=== PATIENT | male | born 1995 | race American Indian/Alaskan Native ===

== ENCOUNTER 2016-07-24 01:54 | Emergency (ER) | payer SELFPAY ==
[2016-07-24] MEDS ORDERED: TYLENOL ONE (02:58)
[2016-07-24] MEDS ORDERED: TYLENOL PO ONE (03:01)
--- NOTE | 2016-07-24 05:16 | XRay Report ---
FINAL REPORT PROCEDURE: XR KNEE 3V LT TECHNIQUE: LEFT knee radiographs, 4 or more views, including AP, lateral, and oblique views. CPT 78191 HISTORY: PAIN COMPARISON: No prior studies are available for comparison. FINDINGS: Fracture (s) and/or Dislocation(s): None . Alignment: Normal . Joint space(s): Normal . Soft tissues: Normal . Bone mineralization: Normal . Foreign bodies: None . IMPRESSION: Normal Examination.
--- NOTE | 2016-07-24 05:35 | Emergency Department Report ---
HPI - General Chief Complaint: Extremity Injury, Lower Time Seen by Provider: 07/24/16 04:24 - HPI HPI: Patient is a 20-year-old male presents to ED complaining of knee pain times today. Patient states he was playing basketball when he fill his knee pop. Patient states pain is localized to the left lateral knee. Patient denies radiation. Patient describes pain as a throbbing aching-type pain rated 9 out of 10 in intensity. Patient denies fevers/chills/nausea/vomiting/calf tenderness/dizziness/headache/ loss of consciousness/loss of sensation in the knee or lower foot. ED Past Medical Hx - Past Medical History Previous Medical History?: No - Surgical History Past Surgical History?: No - Social History Smoking Status: Current Every Day Smoker Substance Use Type: Alcohol - Medications Home Medications: Home Medications Medication Instructions Recorded Confirmed Last Taken Type Ibuprofen [Motrin] 600 mg PO Q8H PRN #20 tablet 07/24/16 Unknown Rx methOCARBAMOL [Robaxin TAB] 500 mg PO BID #20 tab 07/24/16 Unknown Rx ED Review of Systems ROS: Stated complaint: LEFT KNEE INJURY Other details as noted in HPI Constitutional: denies: chills, fever Eyes: denies: eye pain, eye discharge, vision change ENT: denies: ear pain, throat pain Respiratory: denies: cough, shortness of breath, wheezing Cardiovascular: denies: chest pain, palpitations Endocrine: no symptoms reported Gastrointestinal: denies: abdominal pain, nausea, vomiting, diarrhea Genitourinary: denies: urgency, dysuria Musculoskeletal: arthralgia. denies: back pain, joint swelling, myalgia Skin: denies: rash, lesions Neurological: denies: headache, weakness, paresthesias Psychiatric: denies: anxiety, depression Hematological/Lymphatic: denies: easy bleeding, easy bruising Physical Exam - Physical Exam Vital Signs: Vital Signs 07/24/16 02:04 Temperature 98.7 F Pulse Rate 98 H Respiratory 20 Rate Blood Pressure 148/93 O2 Sat by Pulse 100 Oximetry Physical Exam: GENERAL: Alert and oriented x3, no apparent distress, Normal Gait, atraumatic. HEAD: Head is normocephalic and a-traumatic. EYES: Extra ocular muscles are intact. Pupils are equal, round, and reactive to light and accommodation. EARS: symetrical, atraumatic, non tender, ear canal clear and moderate cerumen, tympanic membrance non inflamed. gross auditory nml bilaterally. NOSE: Nose symetrical, Nontender,Nares appeared normal. MOUTH:Mouth is well hydrated and without lesions. Tonsils nonerythematous or swollen, Uvula midline, Tongue not elevated. Mucous membranes are moist. Posterior pharynx clear, no exudate or lesions. Patent airways. NECK: Supple. Non edematous, No carotid bruits. No lymphadenopathy or thyromegaly. No C-spine tenderness LUNGS: Symetrical with respiration, No wheezing, no rales or crackles, CTAB. HEART: S1, S2 present, regular rate and rhythm without murmur, no rubs, no gallops. ABDOMEN: No organomegaly was noted,Positive bowel sounds, soft, and non- distended. . Nontender to palpation on all Quadrants, NO CVA tenderness. EXTREMITIES/MUSCULOSKELETAL: No cyanosis, clubbing, rash, lesions or edema. Full ROM bilaterally. UE/LE Pulses 2+ bilaterally. LE and UE 5+ strength bilaterally, straight leg raise negative bilaterally SKIN: Warm and dry, No lesions, No ulceration or induration present. ED Course Vital Signs 07/24/16 02:04 Temperature 98.7 F Pulse Rate 98 H Respiratory 20 Rate Blood Pressure 148/93 O2 Sat by Pulse 100 Oximetry ED Medical Decision Making - Medical Decision Making 20-year-old male presents with knee arthralgia ED course: The x-ray ordered. X-ray shows no acute injury dislocation or fracture Discussed findings with patient. Patient has full range of movement of the knee. Knee joints are intact. Discussed the patient Severiano wrap. RICE protocols Discussed to follow up with primary care physician. Vital signs are stable patient is in no acute respiratory distress. Patient sent instructions are given. Critical care attestation.: If time is entered above; I have spent that time in minutes in the direct care of this critically ill patient, excluding procedure time. ED Disposition Clinical Impression: Knee pain, left Qualifiers: Chronicity: acute Qualified Code(s): M25.562 - Pain in left knee Arthralgia Qualifiers: Joint pain location: knee Laterality: left Qualified Code(s): M25.562 - Pain in left knee Disposition: DISCHARGED TO HOME OR SELFCARE Is pt being admited?: No Does the pt Need Aspirin: No Condition: Stable Instructions: Arthralgia (ED) Prescriptions: Ibuprofen [Motrin] 600 mg PO Q8H PRN #20 tablet PRN Reason: Pain methOCARBAMOL [Robaxin TAB] 500 mg PO BID #20 tab Forms: Work/School Release Form(ED) Time of Disposition: 05:57
[2016-07-24] MEDS ORDERED: TORADOL ONE (06:11)
[2016-07-24] MEDS ORDERED: TORADOL IM ONE (06:13)
[2016-07-24 06:38] VITALS: BP 140/86
== END 2016-07-24 06:20 | disposition home or self-care (01) ==
LOC: ED 01:54
DX: M25.562 Pain in left knee (principal); F17.200 Nicotine dependence, unspecified, uncomplicated; X58.XXXA Exposure to other specified factors, initial encounter; Y93.67 Activity, basketball; Y99.9 Unspecified external cause status; Y92.89 Other specified places as the place of occurrence of the external cause
CPT/HCPCS: 73562; 96372; 99284; J1885